=== PATIENT | female | born 1945 | race Caucasian/White ===

== ENCOUNTER 2018-07-13 13:00 | Outpatient (RCR) | payer MEDICARE, BC | END 2018-07-30 13:48 | disposition home or self-care (01) | LOC: WSPT 13:00 | DX: I89.0 Lymphedema, not elsewhere classified (principal); L97.921 Non-pressure chronic ulcer of unspecified part of left lower leg limited to breakdown of skin; L97.911 Non-pressure chronic ulcer of unspecified part of right lower leg limited to breakdown of skin | CPT/HCPCS: G8978-GP; G8979-GP ==